=== PATIENT | female | born 1955 | race Caucasian/White ===

== ENCOUNTER 2016-02-28 06:56 | Emergency (ER) | payer BC ==
--- NOTE | 2016-02-28 07:28 | EDPRACDOC ---
- General Information Stated Complaint: NAUSEA/ COUGH Time Seen by Provider: 02/28/16 07:24 Information Source: Patient Mode Of Arrival: Car Home Medications: Home Medications Lisinopril/Hydrochlorothiazide [Lisinopril-Hctz 20-12.5 mg Tab] 1 tab PO DAILY 02/15/14 Lorazepam [Ativan] 0.5 - 1 mg PO BID PRN 02/15/14 Vortioxetine Hydrobromide [Brintellix] 10 mg PO DAILY 02/15/14 Ondansetron HCl [Zofran] 4 mg PO Q6H PRN #12 tab 02/28/16 Oxycodone HCl [Roxicodone] 5 mg PO Q4 PRN #10 tablet 02/28/16 Allergies/Adverse Reactions: Allergies Allergy/AdvReac Type Severity Reaction Status Date / Time Sulfa (Sulfonamide Allergy Itching Verified 02/15/14 13:00 Antibiotics) - History of Present Illness HPI: LLQ PAIN SINCE MONDAY AM. STRAINED TO GET OUT OF TUB. DIARRHEA AND COFFEE GROUNDS IN COMMODE. FEVER THEN. PAIN 11/15. ED Past Medical History - History Reviewed Yes Nurses notes reviewed and agree except as marked - Patient Medical History Cardiac History: Reports: Hypertension EDM Review of Systems - Review of Systems ROS Negative Except as Marked: Yes All systems reviewed and were negative except as marked Constitutional: Fever Eyes: No Symptoms Reported Respiratory: Cough Cardiovascular: No Symptoms Reported Gastrointestinal: Diarrhea, Pain, Vomiting Genitourinary: No Symptoms Reported Neurological: Headache (INTERMITENT) Musculoskeletal: Back (AFTER COUGHING YESTERDAY) - Physical Exam Constitutional: Alert (Awake) Oriented to: Time, Person, Place Last recorded Vital Signs: Last Vital Signs Temp 98 F 02/28/16 07:44 Pulse 87 02/28/16 08:41 Resp 18 02/28/16 08:22 BP 127/65 02/28/16 08:41 Pulse Ox 97 02/28/16 08:41 Oxygen Pulse Oxygen Saturation 97 O2 Device Oxygen Flow Rate Fraction of Inspired Oxygen ( FIO2) - HEENT Head: Normal ( normocephalic) Eye Exam: Normal (PERRL, EOMI, Sclera white) Oropharynx: Normal (Pharynx:Moist without exudate,Gums-no swelling) Nose: No Symptoms Reported (septum midline) Neck: Normal (FROM, trachea at midline) - Respiratory/Cardiovascular Respiratory: Normal - CTA (BBS clear to auscultation without adventitious sounds ) Cardiovascular: Normal (RRR without murmur, gallop or rub) - GI Auscultation: Normal (NABS) Palpation: Normal (Soft,No rebound or guarding, non distended) Tenderness: Moderate, LLQ. negative: Guarding, Rebound, Rigidity Rodrigues's Sign: Negative - Musculoskeletal Back: Normal (Non-Tender) Extremities: Normal (Normal tone, Pulses 2+ No cyanosis or edema, FROM) - Integumentary Skin: Normal, Warm, Dry Lymphatics: Normal (no adenopathy) - Neurologic Memory Impaired: Normal Motor Function: Normal (Normal tone, Pulses 2+ No cyanosis or edema, FROM) Cranial Nerve: Normal (CN II-X11 intact sensation, strength 5/5) Cerebellar: Normal Mood Description: Normal Perception: Normal - Results 02/28/16 07:30 02/28/16 07:30 WBC 5.3 xk/uL (3.8-10.8) 02/28/16 07:30 RBC 5.06 xM/uL (4.20-5.40) 02/28/16 07:30 Hgb 15.2 g/dL (12.0-16.0) 02/28/16 07:30 Hct 43.9 % (36-47) 02/28/16 07:30 MCV 87 fL (81-99) 02/28/16 07:30 MCH 30.0 pg (27-32) 02/28/16 07:30 MCHC 34.5 g/dl (33-36) 02/28/16 07:30 RDW 13.0 % (11.5-14.5) 02/28/16 07:30 Plt Count 244 xk/uL (130-400) 02/28/16 07:30 MPV 8.1 fL (7.4-10.4) 02/28/16 07:30 Neut % (Auto) 51.0 % (45-76) 02/28/16 07:30 Lymph % (Auto) 36.3 % (17-44) 02/28/16 07:30 [place] % (Auto) 10.1 % (3-10) H 02/28/16 07:30 Eos % (Auto) 1.6 % (0-5) 02/28/16 07:30 Baso % (Auto) 1.0 % (0-2) 02/28/16 07:30 Absolute Neuts (auto) 2.70 xk/uL (1.7-8.2) 02/28/16 07:30 Absolute Lymphs (auto) 1.91 xk/uL (0.65-4.75) 02/28/16 07:30 Sodium 138 mEq/L (137-146) 02/28/16 07:30 Potassium 3.9 mEq/L (3.5-5.1) 02/28/16 07:30 Chloride 102 mEq/L (98-107) 02/28/16 07:30 Carbon Dioxide 21 mMOL/L (22-33) L 02/28/16 07:30 Anion Gap 19 mEq/L (8-16) H 02/28/16 07:30 BUN 16 MG/DL (7-17) 02/28/16 07:30 Creatinine 0.80 MG/DL (0.52-1.04) 02/28/16 07:30 Estimated GFR (MDRD) > 60 mL/min (>=60) 02/28/16 07:30 Glucose 110 MG/DL (70-99) H 02/28/16 07:30 Calculated Osmolality 268 MOs/Kg (270-290) L 02/28/16 07:30 Lactic Acid 2.0 mEq/L (0.7-2.1) 02/28/16 07:30 Calcium 9.4 MG/DL (8.4-10.2) 02/28/16 07:30 Total Bilirubin 1.2 MG/DL (0.2-1.3) 02/28/16 07:30 AST 34 IU/L (14-36) 02/28/16 07:30 ALT 39 IU/L (9-52) 02/28/16 07:30 Alkaline Phosphatase 71 IU/L (55-165) 02/28/16 07:30 Total Protein 7.1 G/DL (6.3-8.2) 02/28/16 07:30 Albumin 4.0 G/DL (3.5-5.0) 02/28/16 07:30 Urine Color Yellow 02/28/16 09:30 Urine Clarity Sl hzy 02/28/16 09:30 Urine pH 5.0 (5.0-8.0) 02/28/16 09:30 Ur Specific [place] 1.010 (1.003-1.035) 02/28/16 09:30 Urine Protein Neg (NEG/TRACE) 02/28/16 09:30 Urine Glucose (UA) Neg (NEGATIVE) 02/28/16 09:30 Urine Ketones Trace (NEGATIVE) H 02/28/16 09:30 Urine Occult Blood Neg (NEG/TRACE) 02/28/16 09:30 Urine Nitrite Neg (NEGATIVE) 02/28/16 09:30 Urine Bilirubin Neg (NEGATIVE) 02/28/16 09:30 Urine Urobilinogen 0.2 MG/DL (0-1) 02/28/16 09:30 Ur Leukocyte Esterase Neg (NEGATIVE) 02/28/16 09:30 Urine RBC 2-5 (0-5) 02/28/16 09:30 Urine WBC 2-5 (0-5) 02/28/16 09:30 Ur Epithelial Cells 4+ 02/28/16 09:30 Urine Bacteria Few (NEG/FEW) 02/28/16 09:30 Urine Mucus Mod (NEG/OCC) H 02/28/16 09:30 Lab Results 02/28/16 02/28/16 02/28/16 09:30 07:30 07:30 WBC 5.3 RBC 5.06 Hgb 15.2 Hct 43.9 MCV 87 MCH 30.0 MCHC 34.5 RDW 13.0 Plt Count 244 MPV 8.1 Neut % (Auto) 51.0 Lymph % (Auto) 36.3 [place] % (Auto) 10.1 H Eos % (Auto) 1.6 Baso % (Auto) 1.0 Absolute Neuts (auto) 2.70 Absolute Lymphs (auto) 1.91 Sodium Potassium Chloride Carbon Dioxide Anion Gap BUN Creatinine Estimated GFR (MDRD) Glucose Calculated Osmolality Lactic Acid 2.0 Calcium Total Bilirubin AST ALT Alkaline Phosphatase Total Protein Albumin Urine Color Yellow Urine Clarity Sl hzy Urine pH 5.0 Ur Specific [place] 1.010 Urine Protein Neg Urine Glucose (UA) Neg Urine Ketones Trace H Urine Occult Blood Neg Urine Nitrite Neg Urine Bilirubin Neg Urine Urobilinogen 0.2 Ur Leukocyte Esterase Neg Urine RBC 2-5 Urine WBC 2-5 Ur Epithelial Cells 4+ Urine Bacteria Few Urine Mucus Mod H 02/28/16 07:30 WBC RBC Hgb Hct MCV MCH MCHC RDW Plt Count MPV Neut % (Auto) Lymph % (Auto) [place] % (Auto) Eos % (Auto) Baso % (Auto) Absolute Neuts (auto) Absolute Lymphs (auto) Sodium 138 Potassium 3.9 Chloride 102 Carbon Dioxide 21 L Anion Gap 19 H BUN 16 Creatinine 0.80 Estimated GFR (MDRD) > 60 Glucose 110 H Calculated Osmolality 268 L Lactic Acid Calcium 9.4 Total Bilirubin 1.2 AST 34 ALT 39 Alkaline Phosphatase 71 Total Protein 7.1 Albumin 4.0 Urine Color Urine Clarity Urine pH Ur Specific [place] Urine Protein Urine Glucose (UA) Urine Ketones Urine Occult Blood Urine Nitrite Urine Bilirubin Urine Urobilinogen Ur Leukocyte Esterase Urine RBC Urine WBC Ur Epithelial Cells Urine Bacteria Urine Mucus Decision Time to Discharge: 10:01 - Departure Yes I personally saw and evaluated the patient. Disposition: Home Condition: Stable Final Diagnosis: Abdominal pain Diarrhea Qualifiers: Diarrhea type: unspecified type Qualified Code(s): R19.7 - Diarrhea, unspecified Instructions: Abdominal Pain in Women, Acute Diarrhea (ED) Education/Counseling Given To: Patient Education/Counseling Given Regarding: Diagnosis Referrals: None,No Provider [Primary Care Provider] - One Week Prescriptions: Oxycodone HCl [Roxicodone] 5 mg PO Q4 PRN #10 tablet PRN Reason: Pain
[2016-02-28] MEDS ORDERED: ONDANSETRON HCL 4 MG/2 ML VIAL IV ONE (07:29)
[2016-02-28] MEDS ORDERED: NS 1,000 ML IV ONE (07:29)
[2016-02-28] MEDS ORDERED: HYDROmorphone 1 MG INJECTION IV ONE (07:29)
[2016-02-28] MEDS ORDERED: NS 500 ML IV ONE (07:29)
[2016-02-28 07:39] LABS: AUTOMATED EOSINOPHIL 1.6 % (0-5); AUTOMATED LYMPH 36.3 % (17-44); AUTOMATED MONOCYTE 10.1 % (3-10); MPV 8.1 fL (7.4-10.4)
[2016-02-28 07:48] LABS: BLOOD UREA NITROGEN 16 MG/DL (7-17); CALCIUM 9.4 MG/DL (8.4-10.2); CALCULATED OSMOLALITY 268 MOs/Kg (270-290); CHLORIDE 102 mEq/L (98-107); GLUCOSE 110 MG/DL (70-99); SODIUM LEVEL 138 mEq/L (137-146); TOTAL PROTEIN 7.1 G/DL (6.3-8.2)
[2016-02-28 07:50] VITALS: BMI 27.1
[2016-02-28] MEDS ORDERED: Pharmacy Review for Metformin - IV Contrast Given SCH (08:00)
[2016-02-28] MEDS ORDERED: HYDROmorphone 1 MG INJECTION IM ONE (08:46)
[2016-02-28] MEDS ORDERED: ONDANSETRON HCL 4 MG/2 ML VIAL IM ONE (08:47)
--- NOTE | 2016-02-28 09:08 | DIRPT ---
CLINICAL DATA: Left lower quadrant abdominal pain. EXAM: CT ABDOMEN AND PELVIS WITH CONTRAST TECHNIQUE: Multidetector CT imaging of the abdomen and pelvis was performed using the standard protocol following bolus administration of intravenous contrast. CONTRAST: 100 mL Isovue 370 IV COMPARISON: None. FINDINGS: Moderate sized hiatal hernia present. The liver, gallbladder, pancreas, spleen, adrenal glands and bowel are within normal limits. There is no evidence of acute inflammatory process or abnormal fluid collection. There are some benign appearing parapelvic renal cysts on the left. In the posterior aspect of the left interpolar kidney, a cystic areas present measuring approximately 1.2 cm. In the dependent aspect of this cyst a focal 5 mm calcification is present and this may be a calculus located in a caliceal diverticulum. This is not causing any obstruction. The bladder is unremarkable. No hernias are identified. No vascular abnormalities. Bony structures are normal. IMPRESSION: 1. No acute findings in the abdomen or pelvis. 2. Moderate-sized hiatal hernia. 3. Cystic area in the left interpolar kidney with a dependent calcification. This is felt to most likely represent a caliceal diverticulum containing a small calculus. Cyst with peripheral calcification is an additional possibility. Electronically Signed By: Chivo Crowley M.D. On: 02/28/2016 09:05
[2016-02-28 09:44] LABS: LEUKOCYTES/URINE NEG (NEGATIVE); NITRITE/URINE NEG (NEGATIVE); URINE OCCULT BLOOD NEG (NEG/TRACE)
[2016-02-28 10:23] VITALS: BP 119/70; PULSE 73; TEMP 98.3
== END 2016-02-28 10:15 | disposition home or self-care (01) ==
LOC: ED 06:56
DX: R10.9 Unspecified abdominal pain (principal); R19.7 Diarrhea, unspecified
CPT/HCPCS: 36415; 74177; 80053; 81001; 83605; 85025; 96361; 96374; 96375; 99284; A9698; J1170; J2405